=== PATIENT | female | born 1960 | race Caucasian/White ===

== ENCOUNTER 2018-08-15 06:01 | Day surgery (SDC) | payer OTHER, SELFPAY ==
[2018-08-15] MEDS ORDERED: LR 1,000 ML IV ONE (06:17)
[2018-08-15] MEDS ORDERED: LIDOCAINE 0.5% 50 ML SDV ONE ×2 (06:57→07:25)
[2018-08-15] MEDS ORDERED: BACITRACIN ZINC 0.5 OZ OINTTUBE TP ONE (06:57)
[2018-08-15] MEDS ORDERED: EPINEPHrine 1 MG/ML INJ ONE (06:57)
--- NOTE | 2018-08-15 06:59 | PDGENHP ---
History & Physical Chief Complaint: Facial aging History of Present Illness: 57 year old female, otherwise healthy presenting with facial againg. She presents today for facelift procedure Pertinent Past, Social, Family History: Noncontributory Relevant Physical Exam: HEENT: CN 2-12 grossly intact. Lungs: CTA B. Heart: RRR no murmurs. Abd: soft non-tender Cardiorespiratory Assessment: Lungs: Clear. Heart: regular
[2018-08-15] MEDS ORDERED: CLINDAMYCIN 600 MG/DEXTROSE 50 ML IV ONE (07:00)
[2018-08-15] MEDS ORDERED: DEXAMETHASONE 10 MG/ML VIAL IVP ONE (07:01)
[2018-08-15] MEDS ORDERED: DEXAMETHASONE 20 MG in D5W 50 ML IV ONE (07:15)
[2018-08-15] MEDS ORDERED: PROMETHAZINE HCL 25 MG/ML INJ IVP PRN (07:16)
[2018-08-15] MEDS ORDERED: ALBUTEROL 3 ML DEYVIAL IH PRN (07:16)
[2018-08-15] MEDS ORDERED: ACETAMINOPHEN 500 MG TAB PO PRN (07:16)
[2018-08-15] MEDS ORDERED: NALOXONE HCL 0.4 MG/ML INJ IVP PRN ×2 (07:16→09:58)
[2018-08-15] MEDS ORDERED: NS 500 ML IV PRN (07:16)
[2018-08-15] MEDS ORDERED: ONDANSETRON 4 MG/2 ML VIAL IVP PRN (07:16)
[2018-08-15] MEDS ORDERED: HYDROmorphONE/DILAUDID 1 MG/ML INJ IVP PRN (07:16)
[2018-08-15] MEDS ORDERED: DIAZEPAM 10 MG/2 ML SYR IVP PRN (07:16)
--- NOTE | 2018-08-15 07:16 | PDANEPAE ---
ANE History of Present Illness here for facelift ANE Past Medical History - Cardiovascular History Hx Hypertension: No Hx Arrhythmias: No Hx Chest Pain: No Hx Coronary Artery / Peripheral Vascular Disease: No Hx CHF / Valvular Disease: No Hx Palpitations: No - Pulmonary History Hx COPD: No Hx Asthma/Reactive Airway Disease: No Hx Recent Upper Respiratory Infection: No Hx Oxygen in Use at Home: No Hx Sleep Apnea: No Sleep Apnea Screening Result - Last Documented: Negative - Neurologic History Hx Cerebrovascular Accident: No Hx Seizures: No Hx Dementia: No - Endocrine History Hx Diabetes: No - Renal History Hx Renal Disorders: No - Liver History Hx Hepatic Disorders: No - Neurological & Psychiatric Hx Hx Neurological and Psychiatric Disorders: No - Cancer History Hx Cancer: No - Congenital Disorder History Hx Congenital Disorders: No - GI History Hx Gastrointestinal Disorders: No - Other Health History Other Health History: 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 ACL REPAIR. HYSTERECTOMY ANE Review of Systems Review of systems is: negative Review of Systems: - Exercise capacity METS (RN): 5 METS ANE Patient History - Allergies Allergies/Adverse Reactions: acetaminophen [From Percocet] Allergy (Verified 08/15/18 06:24) NAUSEA & VOMITING cefixime [From Suprax] Allergy (Verified 08/15/18 06:24) Hives hydrocodone [From Vicodin] Allergy (Verified 08/15/18 06:24) THROAT CLOSING metronidazole Allergy (Verified 08/15/18 06:24) Hives oxycodone [From Percocet] Allergy (Verified 08/15/18 06:24) NAUSEA & VOMITING Penicillins Allergy (Verified 08/15/18 06:24) Hives Sulfa (Sulfonamide Antibiotics) Allergy (Verified 08/15/18 06:24) Hives - Home Medications Home medications: home medication list seen and reviewed Home Medications: Aleve 08/14/18 [Last Taken 08/11/18] Herbals/Supplements -Info Only 08/14/18 [Last Taken 08/11/18] Miralax 17 gm (*) 08/14/18 [Last Taken 08/14/18] Mucinex 08/14/18 [Last Taken 08/13/18] - NPO status NPO Status: no food or drink >8 hours NPO Since - Liquids (Date): 08/14/18 NPO Since - Liquids (Time): 22:00 NPO Since - Solids (Date): 08/14/18 NPO Since - Solids (Time): 19:30 - Smoking Hx Smoking Status: Never smoked - Family Anes Hx Family Hx Anesthesia Complications: MOTHER W/DEMENTIA WORSENED BY ANESTHESIA ANE Labs/Vital Signs - Vital Signs Vital Signs: reviewed preoperatively; see RN documention for details Blood Pressure: 107/74 Heart Rate: 63 Respiratory Rate: 16 O2 Sat (%): 94 Height: 162.56 cm Weight: 57.606 kg ANE Physical Exam - Airway Neck exam: FROM Mallampati Score: Class 1 Mouth exam: normal dental/mouth exam - Pulmonary Pulmonary: no respiratory distress - Cardiovascular Cardiovascular: regular rate and rhythym - ASA Status ASA Status: II ANE Anesthesia Plan Anesthesia Plan: general endotracheal anesthesia
[2018-08-15] MEDS ORDERED: MIDAZOLAM 2 MG/2 ML VIAL IVP ONE (07:17)
[2018-08-15] MEDS ORDERED: MIDAZOLAM 2 MG/2 ML VIAL ONE (07:20)
[2018-08-15] MEDS ORDERED: PROPOFOL/EMULSION 500 MG/50 ML BOTTLE IV ONE ×3 (07:24→09:46)
[2018-08-15] MEDS ORDERED: fentaNYL 100 MCG/2 ML INJ ONE ×3 (07:27→12:00)
[2018-08-15] MEDS ORDERED: ePHEDrine SULFATE 25 MG/5 ML SYR ONE ×2 (07:53→09:22)
[2018-08-15] MEDS ORDERED: LABETALOL HCL 5 MG/ML 20 ML MDV IVP PRN (09:58)
[2018-08-15] MEDS ORDERED: ENALAPRILAT DIHYDRATE 1.25 MG/ML VIAL IVP PRN (09:58)
--- NOTE | 2018-08-15 11:58 | POSTOPPROG ---
Post Op Note Date of Operation: 08/15/18 Surgeon: Lane Rosa Project Coordinator: None Anesthesiologist: Justice Esquivel Anesthesia: GET(General Endotracheal) Pre-op Diagnosis: Facial Aging Post-op Diagnosis: Same Indication: Facial rejuventation Procedure: Rhytidectomy Inf/Abcess present in the surg proc area at time of surgery?: No EBL: Minimal (20cc) Total fluids administered: 1000cc Complications: none Bowel Protocol: No Clean Closure Performed: Yes
[2018-08-15] MEDS: fentaNYL 100 MCG/2 ML INJ IVP PRN ×3 (12:01→12:13)
[2018-08-15] MEDS ORDERED: LABETALOL HCL 5 MG/ML 20 ML MDV ONE (12:16)
--- NOTE | 2018-08-15 12:29 | GOP ---
[f rep st] OPERATIVE REPORT DATE OF OPERATION: 08/15/2018 SURGEON: Lane Rosa MD STOCK PREPARATION OPERATOR: None. ANESTHESIA: General endotracheal. ANESTHESIOLOGIST: Justice Esquivel MD. PREOPERATIVE DIAGNOSIS: Facial aging. POSTOPERATIVE DIAGNOSIS: Facial aging. PROCEDURE PERFORMED: Rhytidectomy. FINDINGS: Facial aging. SPECIMENS: None. ESTIMATED BLOOD LOSS: 20. INDICATIONS: This is a pleasant 57-year-old female who desires facial rejuvenation. She has no other medical problems and she presents today for a full face lift. DESCRIPTION OF PROCEDURE: IV FLUIDS: 1000 mL. COMPLICATIONS: None. DESCRIPTION OF PROCEDURE: The patient was met in the preoperative area where the risks and benefits were discussed with her at length which include, but not limited to, infection, bleeding, hematoma, seroma, partial or total skin flap necrosis, permanent or temporary injury to the facial nerve causing motor damage, paresthesias, asymmetry, poor cosmesis, hypertrophic or keloiding scars, and need for further revision surgeries. She agreed and therefore, signed the operative consent. She was then brought into the operating room and placed in the supine position on the operating table where time-out was performed where all in the room agreed upon the site and the procedure to be performed prior to going to sleep. Bilateral SCDs were placed for DVT prophylaxis, and she received 1 g of Ancef prior to any incision being made. The hair was prepped and secured with rubber bands along the incision line. The marking pen was used to outline the areas of the incision bilaterally which included the preauricular area above the level of the tragus and superiorly into the hairline to the post as well as postauricular region down into the posterior hairline. Also, the incision was made in the submental crease for the submental lipectomy and platysmaplasty. The areas to be operated on were injected with 1% lidocaine containing 1:100,000 epinephrine to provide local anesthesia and vasoconstriction. The total amount of lidocaine used throughout the procedure was maintained at no more than 500 mg. We began the procedure by making the incision on the submental crease as outlined above in a transverse direction through the skin and subcutaneous tissue, and hemostasis was obtained with electrocautery. Electrocautery was then used to dissect down the the platysmal. Direct excision of the submental fat was then performed, and small wisps of the platysma were then excised. Dissection was carried down to the hyoid bone, keeping good thickness of the neck and submental skin flaps. Once we were happy with the contour as well as much safe dissection carried out laterally on both sides of the neck, the facelift part of the procedure was then performed. After waiting approximately 10-15 minutes for adequate vasoconstriction, the auricular and postauricular incision was then started at the earlobe and continued up the posterior aspect of the ear for approximately 2 cm just superior to the external auditory canal and into the hairline. A gentle curve was then made and the incision was carried down to and into the posterior hairline, paralleling the hair follicles and directed posteriorly towards the occipital region. The preauricular incision was carried into a natural crease superior to the tragus, curved posterior onto the tragus and then brought out inferiorly in the natural crease between the lobule and the preauricular skin. The plane of dissection in the hair- bearing areas was cut deep to the roots of the hair follicles and superficial to the fascia of the temporalis muscle. The facial flaps were then initially elevated with a 15 blade and once a safe plane of dissection above the SMAS was established both blunt and sharp dissection was carried out with the face-lift dissecting scissors over the malar region and jowls down to the region past the angle of the mandible, this area of undermining was then connected with an area of previous dissection region in the submental and neck area. Great care was taken to direct the plane of dissection superficial to the parotid fascia and the SMAS. The entire dissection was carried in a radial fashion from the ear approximately 4 cm at the lateral canthal area to 8-10 cm into the neck region. When the areas of dissection had been connected carefully, hemostasis was obtained and all areas were inspected. At no point were muscle fibers or major vessels or nerves encountered during the dissection. The area was then washed out with copious amounts of saline, and good hemostasis was again confirmed. SMAS plication was then performed using the vector from the lateral zygoma down to the angle of the mandible This was done with a 2-0 Ethibond suture imbricating approximately 2.5 cm mobile SMAS to the fixed SMAS area.. Once we were happy with the pull and the contour, any areas of irregularity was contoured down with the liposuction cannula as well as Bovie cautery. The area again was inspected for any bleeding points, and careful hemostasis was obtained. The flaps were then rotated and advanced posteriorly and then superiorly, and incremental tailoring cuts were made, and the suspension points in the pre- and postauricular were secured with 4-0 Vicryl suture subdermal suture. The excess and redundant amount of skin were then excised and trimmed cautiously so as not to cause any downward pull on the ear lobule or stretch any scars during the healing period. Skin closure was then accomplished with 5-0 Prolene in the preauricular down to the lobule and a 5-0 nylon was then used in the postauricular area. The exact same procedure was then repeated on the left side, again with the SMAS plication and closure with 4-0 Vicryl sutures, a running 5-0 Prolene preauricular, and a running 5-0 nylon postauricular. The submental incision was closed with 4-0 vicryl subdermal sutures and a running 5-0 nylon. At the end of the procedure, all flaps were inspected for adequate capillary refill and any evidence of hematoma formation. Any small amount of fluid was expressed postauricularly, and then a bacitracin- impregnated nonstick dressing was cut to conform to the pre- and postauricular area and placed over the incision lines. Then, 4 x 4 gauze and fluff cotton padding were then used to cover the pre- and postauricular areas, and then this was wrapped around the head in a vertical circumferential fashion, and the entire dressing complex was secured with preformed elastic stretch tape. The count was correct at the end of the case. There were no complications. She was awoken and taken to PACU in good condition. /[id number]/MODL MTDD
--- NOTE | 2018-08-15 14:24 | POSTANESTH ---
Post Anesthetic Evaluation Cardiovascular Status: Normal, Stable Respiratory Status: Normal, Stable Level of Consciousness/Mental Status: Moderately Sleepy Pain Control: Adequate, Prn Tx Ordered Nausea/Vomiting Control: Adequate, Prn Tx Ordered Complications Possibly Related to Anesthesia: None Noted
[2018-08-15 14:29] VITALS: BP 124/79
== END 2018-08-15 14:29 | disposition home or self-care (01) ==
LOC: FSGY 06:01
PROVIDERS: ATTEND Plastic Surgery
DX: Z41.1 Encounter for cosmetic surgery (principal); Z86.718 Personal history of other venous thrombosis and embolism
CPT/HCPCS: J0171; J1100; J2250; J2704; J3010